=== PATIENT | female | born 2000 | race Two or more races ===

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

== ENCOUNTER 2019-10-17 00:44 | Emergency (ER) | payer OTHER ==
[2019-10-17] MEDS ORDERED: LORazepam 1 MG Tab PO ONE (00:49)
--- NOTE | 2019-10-17 00:53 | EDM.PDOC ---
ED HPI GENERAL MEDICAL PROBLEM - General Chief Complaint: General Stated Complaint: POSSIBLE ANXIETY ATTACK Time Seen by Provider: 10/17/19 00:45 Source of Information: Reports: Patient History Limitations: Reports: No Limitations - History of Present Illness INITIAL COMMENTS - FREE TEXT/NARRATIVE: 19-year-old female with past medical history of panic disorder presenting with a self-described panic attack. She arrives from home. States that she and her significant other got into a verbal argument tonight and then she began feeling extremely anxious as a result. There was no physical element to the argument. Denies any injuries. Does report drinking alcohol earlier but denies any illicit drug use. She denies any chest discomfort or shortness of breath, does complain of mild palpitations. No other complaints. - Related Data Allergies Allergy/AdvReac Type Severity Reaction Status Date / Time No Known Allergies Allergy Verified 10/17/19 00:48 Home Meds: Home Meds . [No Known Home Meds] 07/08/17 [History] Past Medical History HEENT History: Reports: None Cardiovascular History: Reports: None Respiratory History: Reports: None Gastrointestinal History: Reports: None Genitourinary History: Reports: None PUNCHER History: Reports: None Musculoskeletal History: Reports: None Neurological History: Reports: None Psychiatric History: Reports: None Other Psychiatric History: Panic disorder Endocrine/Metabolic History: Reports: None Hematologic History: Reports: None Immunologic History: Reports: None Oncologic (Cancer) History: Reports: None Dermatologic History: Reports: None - Infectious Disease History Infectious Disease History: Reports: None - Past Surgical History Head Surgeries/Procedures: Reports: None Social & Family History - Family History Family Medical History: Noncontributory - Caffeine Use Caffeine Use: Reports: Soda ED ROS GENERAL - Review of Systems Review Of Systems: See Below Constitutional: Denies: Fever HEENT: Reports: No Symptoms Respiratory: Denies: Shortness of Breath Cardiovascular: Denies: Chest Pain Endocrine: Reports: No Symptoms GI/Abdominal: Denies: Abdominal Pain : Denies: Flank Pain Musculoskeletal: Denies: Neck Pain, Back Pain Skin: Denies: Rash Neurological: Denies: Headache Psychiatric: Reports: Anxiety. Denies: Hallucinations, Suicidal Ideation Hematologic/Lymphatic: Reports: No Symptoms Immunologic: Reports: No Symptoms ED EXAM, GENERAL - Physical Exam Exam: See Below Free Text/Narrative:: Vital signs reviewed. Nursing notes reviewed. Constitutional: Awake, alert, tearful and anxious appearing. Head: Normocephalic, atraumatic. Eyes: EOMI, conjunctiva normal, no discharge, no scleral icterus. Ears, Nose, Throat: External ears and ears normal, moist oral mucosa. Cardiovascular: Tachycardic, 2+ radial pulse, capillary refill less than 2 seconds. RRR, no M/R/G Pulmonary: normal work of breathing, no accessory muscle use. CTA BL Abdomen/GI: Soft, nontender, nondistended, no guarding or rigidity, no masses. Musculoskeletal: No deformities. Integumentary: Appropriate color for ethnicity, warm, dry, no pallor or jaundice , no rash. Neurologic: Alert, answering questions appropriately, normal speech, no facial droop, moving all extremities well. Psychiatric: Anxious and tearful, but has rational thought process and good insight. No hallucinations.. EKG INTERPRETATION EKG Interpretation Comments: 12-Lead ECG Interpretation Acquired: 12:50 AM Rhythm: Sinus tachycardia Rate: 123/min [place]: Normal Intervals: Normal Ectopy: None Ischemic Changes: None apparent RV Strain: No obvious RV strain pattern. ST Segments/T-Waves: No notable changes Interpretation: Unremarkable Course - Vital Signs Text/Narrative:: Patient tachycardic, but hemodynamically stable, afebrile, well-appearing, looks nontoxic. Differential diagnosis includes but is not limited to: Panic attack, anxiety state, arrhythmia, anemia, electrolyte disturbance, drug or alcohol use, etc. Patient is extremely anxious on arrival and thinks she is having a panic attack. We gave 1 mg of p.o. lorazepam. Obtained a twelve-lead EKG which shows sinus tachycardia but no acute ischemia, ectopy, arrhythmia, or evidence of acute right ventricular strain to suggest a pulmonary embolism. At this time I think we can hold off on labs. 1:24 AM: Heart rate improved from 150 to 112. Patient is resting comfortably without any complaints at this time. Denies chest discomfort, palpitations, or shortness of breath. 2:02 AM: Heart rate is now 101. Patient is sleeping comfortably. I woke her up and she has no complaints. She is feeling better. No chest discomfort or shortness of breath. She does have resting tachycardia and her heart rate has not been below 101, but is markedly improved (HR was on 150 bpm when she arrived initially). She is feeling better and wants to go home. She has no other concerns or complaints at this time. Plan: Patient is stable to discharge home with outpatient primary care follow- up. Strict emergency department return precautions were provided, patient indicated understanding. All questions were answered prior to departure. Discharged in good condition. Last Recorded V/S: Last Vital Signs Temp 35.8 C L 10/17/19 02:04 Pulse 101 H 10/17/19 02:04 Resp 14 10/17/19 02:04 BP 126/69 10/17/19 02:04 Pulse Ox 98 10/17/19 02:04 - Orders/Labs/Meds Orders: Active Orders 24 hr Category Date Time Status Cardiac Monitoring [RC] . DIRECTED Care 10/17/19 00:49 Active EKG 12 Lead [EKG Documentation Completion] [RC] STAT Care 10/17/19 00:50 Active Pulse Oximetry [RC] ASDIRECTED Care 10/17/19 00:49 Active Meds: Medications Discontinued Medications Generic Name Dose Route Start Last Admin Trade Name Gino PRN Reason Stop Dose Admin Lorazepam 1 mg 10/17/19 00:49 10/17/19 00:55 Ativan PO 10/17/19 00:50 1 mg ONETIME ONE Administration Departure - Departure Time of Disposition: 02:05 Disposition: Home, Self-Care 01 Condition: Good Clinical Impression: Panic attack - Discharge Information *PRESCRIPTION DRUG MONITORING PROGRAM REVIEWED*: Not Applicable *COPY OF PRESCRIPTION DRUG MONITORING REPORT IN PATIENT CORRIE: Not Applicable Instructions: Panic Attack Referrals: [facility] [Provider Group] - 1 Week (For follow-up of your symptoms. ) Forms: ED Department Discharge Additional Instructions: Thank you for choosing the [facility] emergency department in [place] for your medical needs today. It was a pleasure caring for you. You were seen in the emergency department for anxiety symptoms/a panic attack. I am glad you are feeling better after receiving some medication. I would recommend that you follow-up with a primary medical clinic in the next few days for further evaluation. Please return the emergency department immediately if your symptoms worsen or if you feel worse. The following information is given to patients seen in the emergency department who are being discharged. This information is to outline your options for follow -up care. We provide all patients seen in our emergency department with a follow -up referral. The need for follow-up, as well as the timing and circumstances, are variable depending upon the specifics of your emergency department visit. If you don't have a primary care physician on staff, we will provide you with a referral. We always advise you to contact your personal physician following an emergency department visit to inform them of the circumstance of the visit and for follow-up with them and/or the need for any referrals to a consulting specialist. The emergency department will also refer you to a specialist when appropriate. This referral assures that you have the opportunity for follow-up care with a specialist. All of these measure are taken in an effort to provide you with optimal care, which includes your follow-up. Under all circumstances we always encourage you to contact your private physician who remains a resource for coordinating your care. When calling for follow-up care, please make the office aware that this follow-up is from your recent emergency room visit. If for any reason you are refused follow-up, please contact the [facility] Emergency Department at and asked to speak to the emergency department charge nurse. If you do not have a primary care physician that is caring for you, you can contact these clinics below to set up an appointment to establish care: [facility] - Primary [facility] [address] [place] [id number] [facility] [address] [place] [id number] Sepsis Event Note - Focused Exam Vital Signs: Vital Signs Temp Pulse Resp BP Pulse Ox 10/17/19 02:04 35.8 C L 101 H 14 126/69 98 10/17/19 01:42 106 H 14 102/53 L 95 10/17/19 01:11 112 H 16 106/60 96 10/17/19 00:48 36.4 C 138 H 30 H 130/82 99 Date Exam was Performed: 10/17/19 Time Exam was Performed: 02:19 - My Orders Last 24 Hours: My Active Orders 10/17/19 00:49 Cardiac Monitoring [RC] . DIRECTED Pulse Oximetry [RC] ASDIRECTED 10/17/19 00:50 EKG 12 Lead [EKG Documentation Completion] [RC] STAT - Assessment/Plan Last 24 Hours: My Active Orders 10/17/19 00:49 Cardiac Monitoring [RC] . DIRECTED Pulse Oximetry [RC] ASDIRECTED 10/17/19 00:50 EKG 12 Lead [EKG Documentation Completion] [RC] STAT
== END 2019-10-17 02:18 | disposition home or self-care (01) ==
LOC: MW.ED 00:44
DX: F41.0 Panic disorder [episodic paroxysmal anxiety] (principal)
CPT/HCPCS: 93005; 99282; 99283-25; A9270-GY

== ENCOUNTER 2021-06-09 07:37 | Emergency (ER) | payer BC ==
[2021-06-09] MEDS ORDERED: Sodium Chloride 0.9% 10 ML Syringe FLUSH PRN ×2 (07:59→08:28)
[2021-06-09] MEDS ORDERED: Sodium Chloride 0.9% 2.5 ML Syringe FLUSH PRN ×2 (07:59→08:28)
[2021-06-09] MEDS ORDERED: Sodium Chloride 0.9% 1,000 ML IV ONE ×2 (07:59→08:29)
[2021-06-09] MEDS ORDERED: Sodium Chloride 0.9% 1,000 ML IV SCH (08:30)
[2021-06-09 08:38] LABS: BLOOD UREA NITROGEN,BUN 14 mg/dL (7.0-18.0); CARBON DIOXIDE,CO2 22.2 mmol/L (21.0-32.0); CHLORIDE,CL 102 mmol/L (98-107); GLUCOSE RANDOM 112 mg/dL (74-106); LIPASE 66 U/L (73-393); POTASSIUM,K 3.6 mmol/L (3.5-5.1); SODIUM,NA 134 mmol/L (136-145)
[2021-06-09] MEDS: cefTRIAXone 1 GM in Sodium Chloride 0.9% 50 ML IV ONE ×2 (08:48→08:49)
[2021-06-09] MEDS ORDERED: Ketorolac 30 MG/ML SDV IVPUSH ONE (09:04)
== END 2021-06-09 10:54 | disposition home or self-care (01) ==
LOC: MW.ED 07:37
DX: U07.1 COVID-19 (principal); R55 Syncope and collapse; R00.0 Tachycardia, unspecified
CPT/HCPCS: 36415; 71045; 80053; 81001; 81025; 83605; 83690; 84443; 84484; 85025; 87040; 87635; 93005; 96374; 99284; J1885; J7030; J0696; U0002

== ENCOUNTER 2021-12-23 08:08 | Emergency (ER) | payer BC ==
[2021-12-23] MEDS: Sodium Chloride 0.9% 1,000 ML IV ONE (08:32)
[2021-12-23 09:55] LABS: POTASSIUM,K 3.9 mmol/L (3.5-5.1)
== END 2021-12-23 11:49 | disposition home or self-care (01) ==
LOC: MW.ED 08:08
DX: O20.0 Threatened abortion (principal); Z3A.08 8 weeks gestation of pregnancy
CPT/HCPCS: 36415; 76817; 80053; 84702; 84703; 85025; 86850; 86900; 86901; 96360; 99284; J7030

== ENCOUNTER 2022-06-01 05:01 | Inpatient (IN) | payer BC, OTHER ==
[2022-06-01] MEDS ORDERED: Lidocaine 1% 50 ML MDV INJECT PRN (05:19)
[2022-06-01] MEDS ORDERED: Misoprostol 200 MCG Tab PO PRN (05:19)
[2022-06-01] MEDS ORDERED: Water For Irrigation,Sterile 1,000 ML Container IRR PRN (05:19)
[2022-06-01] MEDS ORDERED: Methylergonovine 0.2 MG/1 ML Amp IM PRN (05:19)
[2022-06-01] MEDS ORDERED: Tranexamic Acid 1,000 MG in Sodium Chloride 0.9% 100 ML IV PRN (05:19)
[2022-06-01] MEDS ORDERED: Butorphanol 1 MG/ML SDV IVPUSH PRN (05:19)
[2022-06-01] MEDS ORDERED: Sodium Chloride 0.9% 2.5 ML Syringe FLUSH PRN (05:19)
[2022-06-01] MEDS ORDERED: Sodium Chloride 0.9% 20 ML SDV IV PRN (05:19)
[2022-06-01] MEDS ORDERED: Sodium Chloride 0.9% 10 ML Syringe FLUSH PRN (05:19)
[2022-06-01] MEDS ORDERED: Carboprost Tromethamine 250 MCG/1 ML Amp IM PRN (05:19)
[2022-06-01] MEDS ORDERED: Terbutaline 1 MG/ML SDV SUBCUT PRN (05:21)
[2022-06-01] MEDS ORDERED: Misoprostol 25 MCG (1/4 of 100 MCG) Tab PO PRN ×2 (05:24→06:00)
[2022-06-01] MEDS ORDERED: Oxytocin/0.9 % Sodium Chloride 30 UNIT/500 ML BAG IV SCH ×2 (05:30)
[2022-06-01] MEDS ORDERED: Lactated Ringers 1,000 ML IV SCH (05:30)
[2022-06-01] MEDS ORDERED: Misoprostol 25 MCG (1/4 of 100 MCG) Tab VAG PRN ×2 (06:00→10:00)
[2022-06-01] MEDS ORDERED: Ampicillin 2 GM in Sodium Chloride 0.9% 100 ML IV ONE (06:00)
[2022-06-01] MEDS ORDERED: Ampicillin 2 GM AdvVial IV ONE (06:06)
[2022-06-01] MEDS ORDERED: ePHEDrine 50 MG/ML SDV IVPUSH PRN ×2 (08:03)
[2022-06-01] MEDS ORDERED: Phenylephrine HCl In 0.9% NaCl 1 MG/10 ML Vial IVPUSH PRN (08:03)
[2022-06-01] MEDS ORDERED: Ropivacaine HCl/PF 400 MG in Premix Bag 1 BAG EPIDUR SCH (08:15)
[2022-06-01] MEDS: Ampicillin 1 GM in Sodium Chloride 0.9% 50 ML IV SCH ×2 (09:41→19:23)
[2022-06-01] MEDS ORDERED: Acetaminophen 500 MG Tab PO PRN (15:23)
[2022-06-01] MEDS ORDERED: Bisacodyl 10 MG Supp RECTAL PRN (15:23)
[2022-06-01] MEDS ORDERED: Docusate Sodium 100 MG Cap PO PRN (15:23)
[2022-06-01] MEDS ORDERED: Witch Hazel Medicated Pads 40/Jar TOP PRN (15:23)
[2022-06-01] MEDS ORDERED: Benzocaine/Menthol 20%-0.5% Spray 78 GM Cannister TOP PRN (15:23)
[2022-06-01] MEDS ORDERED: Ibuprofen 400 MG Tab PO PRN (15:23)
[2022-06-01] MEDS ORDERED: Lanolin 100% Cream 7 GM Tube TOP PRN (15:23)
[2022-06-01] MEDS: Ibuprofen 800 MG Tab PO PRN (16:29)
[2022-06-01] MEDS: Acetaminophen 500 MG Tab PO PRN ×2 (16:29→21:47)
[2022-06-01] MEDS: Phenylephrine HCl In 0.9% NaCl 1 MG/10 ML Vial IVPUSH SCH (19:23)
[2022-06-02] MEDS: Ibuprofen 800 MG Tab PO PRN (04:48)
== END 2022-06-02 17:42 | disposition home or self-care (01) | DRG 560 ==
LOC: MW.OBCHECK 05:01 → MW.OB 05:02 → MW.OBCHECK 05:19 → OBSVTOIN 14:12 → MW.OB 21:43
PROVIDERS: ADMIT Obstetrics & Gynecology; ATTEND Obstetrics & Gynecology
PROC: 10E0XZZ Delivery of Products of Conception, External Approach (ICD-10-PCS; principal; 2022-06-01)
PROC: 3E0P7VZ Introduction of Hormone into Female Reproductive, Via Natural or Artificial Opening (ICD-10-PCS; 2022-06-01)
PROC: 3E0R3BZ Introduction of Anesthetic Agent into Spinal Canal, Percutaneous Approach (ICD-10-PCS; 2022-06-01)
PROC: 00HU33Z Insertion of Infusion Device into Spinal Canal, Percutaneous Approach (ICD-10-PCS; 2022-06-01)
DX: O99.824 Streptococcus B carrier state complicating childbirth (principal); Z37.0 Single live birth; O99.214 Obesity complicating childbirth; Z3A.39 39 weeks gestation of pregnancy
CPT/HCPCS: 01967; 36415; 59025; 59409; 85014; 85018; 85027; 86592; 86850; 86900; 86901; A9270-GY; J0290; J0595; J7050; J7120